=== PATIENT | female | born 1940 | race Caucasian/White ===

== ENCOUNTER 2022-03-06 16:13 | Emergency (ER) | payer MEDICARE, BC ==
[~2022-03-06] VITALS: Ht 157.5 cm; Wt 59.0 kg
[2022-03-06] MEDS ORDERED: MEMA10TA PO (16:49)
[2022-03-06] MEDS ORDERED: AMLO-212 PO (16:49)
[2022-03-06] MEDS ORDERED: VALS320T2 PO (16:50)
== END 2022-03-06 18:43 | disposition home or self-care (01) ==
LOC: ER 16:13
DX: F41.9 Anxiety disorder, unspecified (principal); F32.A Depression, unspecified; Z85.51 Personal history of malignant neoplasm of bladder; Z79.899 Other long term (current) drug therapy
CPT/HCPCS: A4663